=== PATIENT | female | born 1945 | race African-American/Black ===

== ENCOUNTER 2017-02-07 13:47 | Inpatient (IN) ==
[2017-02-07] MEDS ORDERED: SODIUM CHLORIDE 0.9% 500 ML IV STA (14:03)
[2017-02-07 14:55] LABS: Basophils % 0.1 % (0.0-0.8); Hematocrit 40.8 VOL% (35.7-47.0); Immature Granulocytes % 0.3 %; Immature Granulocytes Absolute 0.02 #; Lymphocytes # 0.7 10*3/uL (1.4-4.0); Lymphocytes % 9.5 % (21.3-54.2); Mean Corpuscular HGB Conc 34.3 GM/DL (32-36); Mean Corpuscular Hemoglobin 27 PG (27-34); Mean Corpuscular Volume 79.8 FL (87-102); Mean Platelet Volume 9.7 FL (9.6-12.0); Monocytes # 0.4 10*3/uL (0.11-0.8); Monocytes % 4.8 % (1.7-12.7); Neutrophils # 6.6 10*3/uL (1.4-7.4); Neutrophils % 85.3 % (38.7-73.9); Platelet Count 195 T/CUMM (130-400); Red Blood Count 5.11 MC/CUMM (3.8-5.5); Red Cell Distribution Width 14.6 % (9.3-17.3); White Blood Count 7.7 T/CUMM (4-12)
[2017-02-07 15:15] LABS: Albumin 3.2 G/DL (3.4-5.0); Bilirubin,Total 0.9 MG/DL (0.2-1.0); Calcium 8.9 MG/DL (8.5-10.1); Osmolality,Calculated 281.3 MOS/KG (273-304); Potassium 2.8 MMOL/L (3.5-5.1); Total Protein 6.8 G/DL (6.4-8.3)
[2017-02-07] MEDS ORDERED: LEVOFLOXACIN INJ 500 MG in PREMIX 1 EACH IV STA (15:38)
[2017-02-07 15:59] LABS: Platelet Estimate Normal
[2017-02-07] MEDS ORDERED: LEVOFLOXACIN INJ 100 ML IV ONE (16:05)
[2017-02-07] MEDS ORDERED: ALBUTEROL 2.5 MG/3 ML NEB RESP TX PRN (16:11)
[2017-02-07] MEDS ORDERED: GLUCAGON 1 MG VIAL IM PRN ×3 (16:51→18:43)
[2017-02-07] MEDS ORDERED: DEXTROSE 50% 25 GM/50 ML VIAL IV PRN ×3 (16:51→18:43)
[2017-02-07] MEDS ORDERED: methylPREDNISolone SOD SUC 125 MG/2 ML VIAL IV SCH (17:30)
[2017-02-07] MEDS: INSULIN LISPRO 100 UNIT/ML SUBCUT SCH (19:11)
[2017-02-07] MEDS: POTASSIUM CHLORIDE 20 MEQ TABLET PO SCH ×2 (19:49→20:21)
[2017-02-07] MEDS: ACETAMINOPHEN 325 MG TABLET PO PRN (19:50)
[2017-02-07] MEDS ORDERED: POTASSIUM CHLORIDE 20 MEQ TABLET PO SCH (20:30)
[2017-02-07] MEDS: ALBUTEROL/IPRATROPIUM 3 ML NEB RESP TX SCH (20:32)
[2017-02-07] MEDS ORDERED: INSULIN REGULAR 100 UNIT/ML SUBCUT SCH (21:00)
[2017-02-07] MEDS: methylPREDNISolone SOD SUC 40 MG/1 ML VIAL IV SCH (21:02)
[2017-02-07] MEDS: SODIUM CHLOR 0.9% KCL 20 MEQ 20 MEQ/1,000 ML BAG IV SCH (21:02)
[2017-02-07] MEDS: guaiFENesin/DM ER 600-30 MG TABLET PO SCH (21:33)
[2017-02-07] MEDS: LACTOBACILLUS RHAMNOSUS GG CAPSULE PO SCH (21:34)
[2017-02-08] MEDS: ALBUTEROL/IPRATROPIUM 3 ML NEB RESP TX SCH ×4 (01:05→19:37)
[2017-02-08] MEDS: SODIUM CHLOR 0.9% KCL 20 MEQ 20 MEQ/1,000 ML BAG IV SCH ×2 (03:43→10:02)
[2017-02-08] MEDS: methylPREDNISolone SOD SUC 40 MG/1 ML VIAL IV SCH ×3 (04:52→23:59)
[2017-02-08] MEDS: ACETAMINOPHEN 325 MG TABLET PO PRN (06:50)
[2017-02-08 07:50] LABS: Basophils # 0.1 10*3/uL (0.0-0.2); Basophils % 0.4 % (0.0-0.8); Hemoglobin 13.4 GM/DL (12.0-16.0); Immature Granulocytes % 0.9 %; Immature Granulocytes Absolute 0.13 #; Lymphocytes # 1.1 10*3/uL (1.4-4.0); Lymphocytes % 7.7 % (21.3-54.2); Mean Corpuscular HGB Conc 33.5 GM/DL (32-36); Mean Corpuscular Hemoglobin 27 PG (27-34); Mean Corpuscular Volume 80.5 FL (87-102); Mean Platelet Volume 9.9 FL (9.6-12.0); Monocytes # 0.2 10*3/uL (0.11-0.8); Monocytes % 1.7 % (1.7-12.7); Neutrophils # 12.3 10*3/uL (1.4-7.4); Neutrophils % 89.3 % (38.7-73.9); Platelet Count 181 T/CUMM (130-400); Red Blood Count 4.97 MC/CUMM (3.8-5.5); Red Cell Distribution Width 14.9 % (9.3-17.3); White Blood Count 13.8 T/CUMM (4-12)
[2017-02-08 08:17] LABS: Osmolality,Calculated 293.8 MOS/KG (273-304); Potassium 3.8 MMOL/L (3.5-5.1)
[2017-02-08 08:33] LABS: Band Neutrophils 22 % (0-10); Lymphocytes 7 % (20-55); Metamyelocytes 9 %; Myelocytes 4 %; Segmented Neutrophils 51 % (50-85); Total Cells Counted 100
[2017-02-08 09:07] LABS: Hypochromasia 1+; Platelet Estimate Adequate
[2017-02-08] MEDS: guaiFENesin/DM ER 600-30 MG TABLET PO SCH ×2 (09:19→20:41)
[2017-02-08] MEDS: INSULIN LISPRO 100 UNIT/ML SUBCUT SCH ×4 (09:19→20:40)
[2017-02-08] MEDS: LACTOBACILLUS RHAMNOSUS GG CAPSULE PO SCH (09:19)
[2017-02-08] MEDS ORDERED: DIPHENOXYLATE/ATROPINE 2.5-0.025 MG TABLET PO PRN (09:30)
[2017-02-08] MEDS: metroNIDAZOLE 500 MG TABLET PO SCH ×3 (12:48→20:41)
[2017-02-08] MEDS: ZINC OXIDE PASTE 113 GM TUBE TOP SCH ×2 (12:48→21:00)
[2017-02-08] MEDS ORDERED: BACLOFEN 10 MG TABLET PO PRN (15:12)
[2017-02-08] MEDS ORDERED: OXYMORPHONE HCL 20 MG PO SCH (15:15)
[2017-02-08] MEDS: SODIUM BICARB INJ 50 MEQ, POTASSIUM CHLORIDE INJ 20 MEQ in SODIUM CHLORIDE 0.45% 1,000 ML IV SCH (15:32)
[2017-02-08] MEDS: PANTOPRAZOLE 40 MG TABLET PO SCH (16:20)
[2017-02-08] MEDS: LEVOFLOXACIN INJ 750 MG in PREMIX 1 EACH IV SCH (16:21)
[2017-02-08] MEDS ORDERED: glipiZIDE 5 MG TABLET PO SCH (16:30)
[2017-02-08] MEDS: PREGABALIN 100 MG CAPSULE PO SCH (20:41)
[2017-02-08] MEDS: PRAVASTATIN 20 MG TABLET PO SCH (20:41)
[2017-02-09] MEDS: SODIUM BICARB INJ 50 MEQ, POTASSIUM CHLORIDE INJ 20 MEQ in SODIUM CHLORIDE 0.45% 1,000 ML IV SCH ×2 (00:01→08:58)
[2017-02-09] MEDS: ALBUTEROL/IPRATROPIUM 3 ML NEB RESP TX SCH ×4 (00:12→19:00)
[2017-02-09 05:45] LABS: Basophils # 0.1 10*3/uL (0.0-0.2); Basophils % 0.4 % (0.0-0.8); Hematocrit 36.2 VOL% (35.7-47.0); Hemoglobin 12.3 GM/DL (12.0-16.0); Immature Granulocytes % 0.7 %; Immature Granulocytes Absolute 0.11 #; Lymphocytes # 0.8 10*3/uL (1.4-4.0); Mean Corpuscular Hemoglobin 27 PG (27-34); Mean Corpuscular Volume 79.7 FL (87-102); Mean Platelet Volume 10.2 FL (9.6-12.0); Monocytes # 0.6 10*3/uL (0.11-0.8); Monocytes % 3.7 % (1.7-12.7); Neutrophils # 13.8 10*3/uL (1.4-7.4); Neutrophils % 90.2 % (38.7-73.9); Platelet Count 191 T/CUMM (130-400); Red Blood Count 4.54 MC/CUMM (3.8-5.5); Red Cell Distribution Width 14.9 % (9.3-17.3); White Blood Count 15.3 T/CUMM (4-12)
[2017-02-09 06:15] LABS: Calcium 8.8 MG/DL (8.5-10.1); Magnesium 1.9 MG/DL (1.8-2.4); Osmolality,Calculated 288.8 MOS/KG (273-304); Potassium 3.8 MMOL/L (3.5-5.1)
[2017-02-09 06:21] LABS: Band Neutrophils 11 % (0-10); Hypochromasia 1+; Lymphocytes 5 % (20-55); Segmented Neutrophils 80 % (50-85); Total Cells Counted 100
[2017-02-09 06:22] LABS: Microcytosis 1+; Platelet Estimate Adequate
[2017-02-09] MEDS: INSULIN LISPRO 100 UNIT/ML SUBCUT SCH ×4 (08:51→20:37)
[2017-02-09] MEDS: metroNIDAZOLE 500 MG TABLET PO SCH ×3 (08:53→21:30)
[2017-02-09] MEDS: ZINC OXIDE PASTE 113 GM TUBE TOP SCH ×2 (08:53→21:30)
[2017-02-09] MEDS: glipiZIDE 5 MG TABLET PO SCH (08:54)
[2017-02-09] MEDS: ESCITALOPRAM 10 MG TABLET PO SCH (08:55)
[2017-02-09] MEDS: PREGABALIN 100 MG CAPSULE PO SCH ×2 (08:55→21:30)
[2017-02-09] MEDS: guaiFENesin/DM ER 600-30 MG TABLET PO SCH ×2 (08:55→21:30)
[2017-02-09] MEDS: LISINOPRIL 10 MG TABLET PO SCH (08:56)
[2017-02-09] MEDS ORDERED: FUROSEMIDE 40 MG/4 ML VIAL IV ONE (09:10)
[2017-02-09] MEDS: methylPREDNISolone SOD SUC 40 MG/1 ML VIAL IV SCH (11:01)
[2017-02-09] MEDS: LEVOFLOXACIN INJ 750 MG in PREMIX 1 EACH IV SCH (16:30)
[2017-02-09] MEDS: PANTOPRAZOLE 40 MG TABLET PO SCH (16:31)
[2017-02-09] MEDS: PRAVASTATIN 20 MG TABLET PO SCH (21:30)
[2017-02-09] MEDS: ZALEPLON 5 MG CAPSULE PO PRN (21:36)
[2017-02-10] MEDS: methylPREDNISolone SOD SUC 40 MG/1 ML VIAL IV SCH ×3 (00:27→21:02)
[2017-02-10] MEDS: ALBUTEROL/IPRATROPIUM 3 ML NEB RESP TX SCH ×4 (01:11→19:05)
[2017-02-10 05:48] LABS: Basophils % 0.1 % (0.0-0.8); Hematocrit 36.5 VOL% (35.7-47.0); Hemoglobin 12.7 GM/DL (12.0-16.0); Immature Granulocytes % 0.4 %; Immature Granulocytes Absolute 0.05 #; Lymphocytes # 0.9 10*3/uL (1.4-4.0); Lymphocytes % 7.5 % (21.3-54.2); Mean Corpuscular HGB Conc 34.8 GM/DL (32-36); Mean Corpuscular Hemoglobin 28 PG (27-34); Mean Corpuscular Volume 79.2 FL (87-102); Mean Platelet Volume 9.8 FL (9.6-12.0); Monocytes # 0.3 10*3/uL (0.11-0.8); Monocytes % 2.9 % (1.7-12.7); Neutrophils # 10.5 10*3/uL (1.4-7.4); Neutrophils % 89.1 % (38.7-73.9); Platelet Count 201 T/CUMM (130-400); Red Blood Count 4.61 MC/CUMM (3.8-5.5); Red Cell Distribution Width 14.6 % (9.3-17.3); White Blood Count 11.8 T/CUMM (4-12)
[2017-02-10 06:20] LABS: Calcium 8.6 MG/DL (8.5-10.1); Magnesium 2.1 MG/DL (1.8-2.4); Osmolality,Calculated 289.1 MOS/KG (273-304); Potassium 3.3 MMOL/L (3.5-5.1)
[2017-02-10] MEDS ORDERED: ONDANSETRON 4 MG/2 ML VIAL IV PRN (09:24)
[2017-02-10] MEDS: guaiFENesin/DM ER 600-30 MG TABLET PO SCH ×2 (10:30→20:42)
[2017-02-10] MEDS: LISINOPRIL 10 MG TABLET PO SCH (10:30)
[2017-02-10] MEDS: metroNIDAZOLE 500 MG TABLET PO SCH (10:31)
[2017-02-10] MEDS: ESCITALOPRAM 10 MG TABLET PO SCH (10:31)
[2017-02-10] MEDS: glipiZIDE 5 MG TABLET PO SCH (10:31)
[2017-02-10] MEDS: PREGABALIN 100 MG CAPSULE PO SCH ×2 (10:31→20:41)
[2017-02-10] MEDS: ZINC OXIDE PASTE 113 GM TUBE TOP SCH ×2 (10:32→20:43)
[2017-02-10] MEDS: INSULIN LISPRO 100 UNIT/ML SUBCUT SCH ×4 (10:32→20:42)
[2017-02-10] MEDS ORDERED: POTASSIUM CHLORIDE 20 MEQ TABLET PO ONE (11:02)
[2017-02-10] MEDS: PANTOPRAZOLE 40 MG TABLET PO SCH (17:23)
[2017-02-10] MEDS: PRAVASTATIN 20 MG TABLET PO SCH (20:41)
[2017-02-10] MEDS: LEVOFLOXACIN INJ 750 MG in PREMIX 1 EACH IV SCH (20:42)
[2017-02-11] MEDS: ALBUTEROL/IPRATROPIUM 3 ML NEB RESP TX SCH ×4 (01:00→19:17)
[2017-02-11] MEDS ORDERED: CYCLOBENZAPRINE 10 MG TABLET ONE (09:13)
[2017-02-11 09:56] LABS: Calcium 8.2 MG/DL (8.5-10.1); Magnesium 2.1 MG/DL (1.8-2.4); Potassium 3.9 MMOL/L (3.5-5.1)
[2017-02-11 10:01] LABS: Basophils % 0.3 % (0.0-0.8); Hemoglobin 12.7 GM/DL (12.0-16.0); Immature Granulocytes % 3.8 %; Immature Granulocytes Absolute 0.26 #; Lymphocytes # 1.2 10*3/uL (1.4-4.0); Lymphocytes % 16.9 % (21.3-54.2); Mean Corpuscular HGB Conc 34.3 GM/DL (32-36); Mean Corpuscular Hemoglobin 27 PG (27-34); Mean Corpuscular Volume 79.7 FL (87-102); Mean Platelet Volume 10.1 FL (9.6-12.0); Monocytes # 0.5 10*3/uL (0.11-0.8); Monocytes % 7.3 % (1.7-12.7); Neutrophils # 4.9 10*3/uL (1.4-7.4); Neutrophils % 71.7 % (38.7-73.9); Platelet Count 200 T/CUMM (130-400); Red Blood Count 4.64 MC/CUMM (3.8-5.5); Red Cell Distribution Width 15.2 % (9.3-17.3); White Blood Count 6.8 T/CUMM (4-12)
[2017-02-11] MEDS: INSULIN LISPRO 100 UNIT/ML SUBCUT SCH ×4 (11:00→21:07)
[2017-02-11] MEDS: glipiZIDE 5 MG TABLET PO SCH (11:01)
[2017-02-11] MEDS: ESCITALOPRAM 10 MG TABLET PO SCH (11:01)
[2017-02-11] MEDS: ZINC OXIDE PASTE 113 GM TUBE TOP SCH ×2 (11:01→21:08)
[2017-02-11] MEDS: guaiFENesin/DM ER 600-30 MG TABLET PO SCH ×2 (11:02→21:06)
[2017-02-11] MEDS: LISINOPRIL 10 MG TABLET PO SCH (11:02)
[2017-02-11] MEDS: PREGABALIN 100 MG CAPSULE PO SCH ×2 (11:02→21:06)
[2017-02-11] MEDS: methylPREDNISolone SOD SUC 40 MG/1 ML VIAL IV SCH ×2 (11:03→20:59)
[2017-02-11] MEDS: CYCLOBENZAPRINE 10 MG TABLET PO SCH ×3 (11:03→21:06)
[2017-02-11] MEDS: LIDOCAINE 5% PATCH TRANSDERM SCH (11:04)
[2017-02-11 12:28] LABS: INR 1.1; PT Patient Result 11.4 SECS; Partial Thromboplastin Time 26.7 SECS (0-40)
[2017-02-11] MEDS: PANTOPRAZOLE 40 MG TABLET PO SCH (17:07)
[2017-02-11] MEDS: PRAVASTATIN 20 MG TABLET PO SCH (21:06)
[2017-02-11] MEDS: ZALEPLON 5 MG CAPSULE PO PRN (21:07)
[2017-02-11] MEDS: LEVOFLOXACIN INJ 750 MG in PREMIX 1 EACH IV SCH (21:08)
[2017-02-12] MEDS: ALBUTEROL/IPRATROPIUM 3 ML NEB RESP TX SCH ×4 (00:08→19:22)
[2017-02-12] MEDS ORDERED: PROMETHAZINE 25 MG/1 ML VIAL IM ONE (07:00)
[2017-02-12] MEDS ORDERED: MIDAZOLAM 2 MG/2 ML VIAL ONE (07:29)
[2017-02-12] MEDS ORDERED: LIDOCAINE 1% 20 ML VIAL MISC INJ ONE (07:30)
[2017-02-12] MEDS ORDERED: MIDAZOLAM 2 MG/2 ML VIAL IV ONE (07:30)
[2017-02-12] MEDS ORDERED: LIDOCAINE 2% 20 ML VIAL RESP TX ONE (07:30)
[2017-02-12] MEDS ORDERED: DEXTROSE 50% 25 GM/50 ML VIAL IV PRN (09:15)
[2017-02-12] MEDS ORDERED: GLUCAGON 1 MG VIAL IM PRN (09:15)
[2017-02-12] MEDS: INSULIN LISPRO 100 UNIT/ML SUBCUT SCH ×4 (10:31→21:45)
[2017-02-12] MEDS: CYCLOBENZAPRINE 10 MG TABLET PO SCH ×3 (10:32→21:44)
[2017-02-12] MEDS: ZINC OXIDE PASTE 113 GM TUBE TOP SCH ×2 (10:32→23:15)
[2017-02-12] MEDS: ESCITALOPRAM 10 MG TABLET PO SCH (10:33)
[2017-02-12] MEDS: LIDOCAINE 5% PATCH TRANSDERM SCH (10:33)
[2017-02-12] MEDS: PREGABALIN 100 MG CAPSULE PO SCH ×2 (10:34→21:44)
[2017-02-12] MEDS: guaiFENesin/DM ER 600-30 MG TABLET PO SCH ×2 (10:34→21:44)
[2017-02-12] MEDS: LISINOPRIL 10 MG TABLET PO SCH (10:35)
[2017-02-12] MEDS: methylPREDNISolone SOD SUC 40 MG/1 ML VIAL IV SCH ×2 (10:35→21:45)
[2017-02-12] MEDS: DORNASE ALFA 2.5 MG/2.5 ML VIAL RESP TX SCH ×2 (11:10→19:22)
[2017-02-12] MEDS: PANTOPRAZOLE 40 MG TABLET PO SCH (16:20)
[2017-02-12] MEDS: LEVOFLOXACIN INJ 750 MG in PREMIX 1 EACH IV SCH (21:43)
[2017-02-12] MEDS: PRAVASTATIN 20 MG TABLET PO SCH (21:44)
[2017-02-12] MEDS: ZALEPLON 5 MG CAPSULE PO PRN (23:15)
[2017-02-13] MEDS: ALBUTEROL/IPRATROPIUM 3 ML NEB RESP TX SCH ×4 (00:39→19:40)
[2017-02-13] MEDS: DORNASE ALFA 2.5 MG/2.5 ML VIAL RESP TX SCH ×2 (07:00→19:45)
[2017-02-13] MEDS: INSULIN LISPRO 100 UNIT/ML SUBCUT SCH ×4 (08:59→21:51)
[2017-02-13] MEDS: ZINC OXIDE PASTE 113 GM TUBE TOP SCH ×2 (08:59→21:52)
[2017-02-13] MEDS: LIDOCAINE 5% PATCH TRANSDERM SCH (09:00)
[2017-02-13] MEDS: CYCLOBENZAPRINE 10 MG TABLET PO SCH ×3 (09:00→21:50)
[2017-02-13] MEDS: ESCITALOPRAM 10 MG TABLET PO SCH (09:00)
[2017-02-13] MEDS: guaiFENesin/DM ER 600-30 MG TABLET PO SCH ×2 (09:01→21:50)
[2017-02-13] MEDS: NYSTATIN 500,000 UNIT/5 ML UDCUP SWISH/SWAL SCH ×4 (09:01→21:50)
[2017-02-13] MEDS: LISINOPRIL 10 MG TABLET PO SCH (09:01)
[2017-02-13] MEDS: PREGABALIN 100 MG CAPSULE PO SCH ×2 (09:01→21:49)
[2017-02-13] MEDS: ACETAMINOPHEN 325 MG TABLET PO PRN (09:02)
[2017-02-13] MEDS ORDERED: FLUCONAZOLE 100 MG TABLET PO SCH (10:30)
[2017-02-13] MEDS: PANTOPRAZOLE 40 MG TABLET PO SCH (16:54)
[2017-02-13] MEDS ORDERED: methylPREDNISolone SOD SUC 40 MG/1 ML VIAL IV SCH (21:00)
[2017-02-13] MEDS: PRAVASTATIN 20 MG TABLET PO SCH (21:50)
[2017-02-13] MEDS: LEVOFLOXACIN INJ 750 MG in PREMIX 1 EACH IV SCH (21:50)
[2017-02-13] MEDS: ZALEPLON 5 MG CAPSULE PO PRN (22:00)
[2017-02-14] MEDS: ALBUTEROL/IPRATROPIUM 3 ML NEB RESP TX SCH ×2 (00:38→07:17)
[2017-02-14] MEDS: DORNASE ALFA 2.5 MG/2.5 ML VIAL RESP TX SCH (07:17)
[2017-02-14 07:56] VITALS: BP 155/80
[2017-02-14] MEDS: INSULIN LISPRO 100 UNIT/ML SUBCUT SCH (08:35)
[2017-02-14] MEDS: NYSTATIN 500,000 UNIT/5 ML UDCUP SWISH/SWAL SCH (08:56)
[2017-02-14] MEDS: LISINOPRIL 10 MG TABLET PO SCH (08:56)
[2017-02-14] MEDS: guaiFENesin/DM ER 600-30 MG TABLET PO SCH (08:56)
[2017-02-14] MEDS: ESCITALOPRAM 10 MG TABLET PO SCH (08:57)
[2017-02-14] MEDS: PREGABALIN 100 MG CAPSULE PO SCH (08:57)
[2017-02-14] MEDS: predniSONE 20 MG TABLET PO SCH ×2 (08:57→09:03)
[2017-02-14] MEDS: LIDOCAINE 5% PATCH TRANSDERM SCH (08:57)
[2017-02-14] MEDS: ZINC OXIDE PASTE 113 GM TUBE TOP SCH (08:57)
[2017-02-14] MEDS: CYCLOBENZAPRINE 10 MG TABLET PO SCH (08:57)
== END 2017-02-14 10:30 | disposition home or self-care (01) | DRG 166 ==
LOC: EDBD → EDUNIT# → N.ED 13:47 → N.EDINP 15:48 → N.2E 18:40
PROVIDERS: ADMIT Internal Medicine; ATTEND Internal Medicine

== ENCOUNTER 2017-04-09 17:33 | Inpatient (IN) ==
[2017-04-09] MEDS ORDERED: SODIUM CHLORIDE 0.9% 500 ML IV STA (17:53)
[2017-04-09] MEDS ORDERED: LEVOFLOXACIN INJ 750 MG in PREMIX 1 EACH IV STA (17:53)
[2017-04-09] MEDS ORDERED: methylPREDNISolone SOD SUC 125 MG/2 ML VIAL IV STA (17:59)
[2017-04-09] MEDS ORDERED: ALBUTEROL 2.5 MG/3 ML NEB RESP TX SCH (18:00)
[2017-04-09] MEDS: ALBUTEROL NEB SOLN 5 MG/ML 20 ML/BOTTLE RESP TX SCH (18:15)
[2017-04-09] MEDS ORDERED: LEVOFLOXACIN INJ 0 ML IV ONE (18:25)
[2017-04-09] MEDS ORDERED: methylPREDNISolone SOD SUC 125 MG/2 ML VIAL ONE (18:26)
[2017-04-09 18:38] LABS: Basophils % 0.2 % (0.0-0.8); Hematocrit 39.9 VOL% (35.7-47.0); Hemoglobin 13.8 GM/DL (12.0-16.0); Immature Granulocytes % 0.7 %; Lymphocytes # 1.4 10*3/uL (1.4-4.0); Lymphocytes % 9.1 % (21.3-54.2); Mean Corpuscular HGB Conc 34.6 GM/DL (32-36); Mean Corpuscular Hemoglobin 27 PG (27-34); Mean Corpuscular Volume 78.4 FL (87-102); Mean Platelet Volume 9.6 FL (9.6-12.0); Monocytes # 1.2 10*3/uL (0.11-0.8); Monocytes % 7.7 % (1.7-12.7); Neutrophils # 12.4 10*3/uL (1.4-7.4); Neutrophils % 82.3 % (38.7-73.9); Platelet Count 221 T/CUMM (130-400); Red Blood Count 5.09 MC/CUMM (3.8-5.5); Red Cell Distribution Width 14.4 % (9.3-17.3)
[2017-04-09 18:46] LABS: INR 1.1; Partial Thromboplastin Time 34.7 SECS (0-40)
[2017-04-09 18:53] LABS: Apearance,Urine Slightly Hazy (Clear); Bilirubin,Urine Negative (Negative); Blood, Urine Moderate mg/dL (Negative); Glucose,Urine (UA) Negative (Negative); Ketones,Urine Negative (Negative); Nitrite,Urine Negative (Negative); Protein,Urine 30 MG/DL; RBC,Urine 3 /HPF (0-4); Squamous Epithelial Cell,Urine Occasional /HPF (0-10); Urine Color Yellow (Yellow); Urine Specific Gravity 1.013 (1.001-1.035); WBC,Urine 2 /HPF (0-6)
[2017-04-09 18:58] LABS: Alanine Aminotransferase < 9 U/L (13-56); Albumin 3.2 G/DL (3.4-5.0); Alkaline Phosphatase 110 U/L (45-117); Aspartate Amino Transferase 12 U/L (0-37); Blood Urea Nitrogen 11 MG/DL (7-18); Calcium 8.6 MG/DL (8.5-10.1); Glucose 133 MG/DL (74-106); Osmolality,Calculated 266.4 MOS/KG (273-304); Potassium 3.1 MMOL/L (3.5-5.1); Sodium 133 MMOL/L (136-145); Total Protein 7.3 G/DL (6.4-8.3); Troponin I Only < 0.015 NG/ML (0.00-0.045)
[2017-04-09] MEDS ORDERED: POTASSIUM BICARB EFFERVESCENT 25 MEQ TABLET PO ONE ×2 (19:01→20:53)
[2017-04-09] MEDS ORDERED: DEXTROSE 50% 25 GM/50 ML VIAL IV PRN (20:27)
[2017-04-09] MEDS ORDERED: ONDANSETRON 4 MG/2 ML VIAL IV PRN (20:27)
[2017-04-09] MEDS ORDERED: ACETAMINOPHEN 325 MG TABLET PO PRN (20:27)
[2017-04-09] MEDS ORDERED: GLUCAGON 1 MG VIAL IM PRN (20:27)
[2017-04-09] MEDS: ENOXAPARIN 40 MG/0.4 ML SYRINGE SUBCUT SCH (21:02)
[2017-04-09] MEDS ORDERED: INSULIN REGULAR 100 UNIT/ML ONE (21:50)
[2017-04-09] MEDS: INSULIN REGULAR 100 UNIT/ML SUBCUT SCH (21:52)
[2017-04-10] MEDS: ALBUTEROL/IPRATROPIUM 3 ML NEB RESP TX SCH ×4 (01:29→19:30)
[2017-04-10] MEDS: methylPREDNISolone SOD SUC 125 MG/2 ML VIAL IV SCH ×2 (02:31→09:50)
[2017-04-10 06:09] LABS: Basophils % 0.1 % (0.0-0.8); Hematocrit 39.3 VOL% (35.7-47.0); Hemoglobin 13.3 GM/DL (12.0-16.0); Immature Granulocytes % 0.9 %; Immature Granulocytes Absolute 0.14 #; Lymphocytes # 0.9 10*3/uL (1.4-4.0); Mean Corpuscular HGB Conc 33.8 GM/DL (32-36); Mean Corpuscular Hemoglobin 27 PG (27-34); Mean Corpuscular Volume 78.6 FL (87-102); Mean Platelet Volume 10.3 FL (9.6-12.0); Monocytes # 0.2 10*3/uL (0.11-0.8); Monocytes % 1.5 % (1.7-12.7); Neutrophils # 13.8 10*3/uL (1.4-7.4); Neutrophils % 91.5 % (38.7-73.9); Platelet Count 247 T/CUMM (130-400); Red Cell Distribution Width 14.6 % (9.3-17.3); White Blood Count 15.1 T/CUMM (4-12)
[2017-04-10 06:49] LABS: Alanine Aminotransferase < 9 U/L (13-56); Albumin 2.7 G/DL (3.4-5.0); Alkaline Phosphatase 102 U/L (45-117); Aspartate Amino Transferase 7 U/L (0-37); Blood Urea Nitrogen 11 MG/DL (7-18); Calcium 9.6 MG/DL (8.5-10.1); Glucose 216 MG/DL (74-106); Osmolality,Calculated 284.4 MOS/KG (273-304); Potassium 3.4 MMOL/L (3.5-5.1); Sodium 140 MMOL/L (136-145); Total Protein 6.9 G/DL (6.4-8.3)
[2017-04-10 06:53] LABS: Band Neutrophils 2 % (0-10); Hypochromasia 1+; Lymphocytes 6 % (20-55); Microcytosis 1+; Segmented Neutrophils 91 % (50-85); Total Cells Counted 100
[2017-04-10 06:54] LABS: Platelet Estimate Normal
[2017-04-10] MEDS ORDERED: PANTOPRAZOLE 40 MG TABLET PO SCH (09:00)
[2017-04-10] MEDS: INSULIN REGULAR 100 UNIT/ML SUBCUT SCH ×4 (09:50→22:00)
[2017-04-10] MEDS ORDERED: POTASSIUM CHLORIDE 20 MEQ TABLET PO ONE (12:38)
[2017-04-10] MEDS ORDERED: OXYMORPHONE HCL 20 MG PO SCH (12:45)
[2017-04-10] MEDS ORDERED: ALBUTEROL 2.5 MG/3 ML NEB RESP TX PRN (13:00)
[2017-04-10] MEDS: CYCLOBENZAPRINE 10 MG TABLET PO SCH ×2 (15:37→21:59)
[2017-04-10] MEDS: PREGABALIN 100 MG CAPSULE PO SCH ×2 (15:37→21:59)
[2017-04-10] MEDS: methylPREDNISolone SOD SUC 40 MG/1 ML VIAL IV SCH (17:17)
[2017-04-10] MEDS: PANTOPRAZOLE 40 MG TABLET PO SCH (17:18)
[2017-04-10] MEDS: LEVOFLOXACIN INJ 750 MG in PREMIX 1 EACH IV SCH (17:19)
[2017-04-10] MEDS: ALBUTEROL NEB SOLN 5 MG/ML 20 ML/BOTTLE RESP TX SCH (21:00)
[2017-04-10] MEDS: PRAVASTATIN 20 MG TABLET PO SCH (21:59)
[2017-04-10] MEDS: ENOXAPARIN 40 MG/0.4 ML SYRINGE SUBCUT SCH (22:00)
[2017-04-10] MEDS: ZALEPLON 5 MG CAPSULE PO SCH (22:00)
[2017-04-11] MEDS: methylPREDNISolone SOD SUC 40 MG/1 ML VIAL IV SCH ×2 (00:37→14:01)
[2017-04-11] MEDS: ALBUTEROL/IPRATROPIUM 3 ML NEB RESP TX SCH ×4 (01:42→20:06)
[2017-04-11] MEDS: DORNASE ALFA 2.5 MG/2.5 ML VIAL RESP TX SCH ×2 (08:37→20:06)
[2017-04-11] MEDS: LISINOPRIL 20 MG TABLET PO SCH (08:53)
[2017-04-11] MEDS: PREGABALIN 100 MG CAPSULE PO SCH ×3 (08:54→21:45)
[2017-04-11] MEDS: ESCITALOPRAM 10 MG TABLET PO SCH (08:54)
[2017-04-11] MEDS: INSULIN REGULAR 100 UNIT/ML SUBCUT SCH ×4 (08:55→21:52)
[2017-04-11] MEDS: CYCLOBENZAPRINE 10 MG TABLET PO SCH ×3 (08:55→21:47)
[2017-04-11] MEDS: CEFEPIME 1,000 MG in SYRINGE 1 EACH IV SCH ×2 (08:56→21:42)
[2017-04-11] MEDS: PANTOPRAZOLE 40 MG TABLET PO SCH (16:48)
[2017-04-11] MEDS: LEVOFLOXACIN INJ 750 MG in PREMIX 1 EACH IV SCH (17:51)
[2017-04-11] MEDS ORDERED: POTASSIUM CHLORIDE 20 MEQ TABLET PO ONE (19:33)
[2017-04-11] MEDS: ZALEPLON 5 MG CAPSULE PO SCH (21:44)
[2017-04-11] MEDS: PRAVASTATIN 20 MG TABLET PO SCH (21:45)
[2017-04-11] MEDS: ENOXAPARIN 40 MG/0.4 ML SYRINGE SUBCUT SCH (21:47)
[2017-04-12] MEDS: ALBUTEROL/IPRATROPIUM 3 ML NEB RESP TX SCH ×3 (00:29→14:05)
[2017-04-12] MEDS: methylPREDNISolone SOD SUC 40 MG/1 ML VIAL IV SCH ×2 (00:56→15:04)
[2017-04-12 03:37] LABS: Calcium 8.5 MG/DL (8.5-10.1); Magnesium 2.4 MG/DL (1.8-2.4); Osmolality,Calculated 287.3 MOS/KG (273-304); Potassium 4.2 MMOL/L (3.5-5.1)
[2017-04-12] MEDS ORDERED: FUROSEMIDE 20 MG/2 ML VIAL IV ONE (06:00)
[2017-04-12] MEDS: ALBUTEROL NEB SOLN 5 MG/ML 20 ML/BOTTLE RESP TX SCH (06:23)
[2017-04-12] MEDS: DORNASE ALFA 2.5 MG/2.5 ML VIAL RESP TX SCH (08:30)
[2017-04-12] MEDS: ESCITALOPRAM 10 MG TABLET PO SCH (09:22)
[2017-04-12] MEDS: CYCLOBENZAPRINE 10 MG TABLET PO SCH ×2 (09:22→15:04)
[2017-04-12] MEDS: PREGABALIN 100 MG CAPSULE PO SCH ×2 (09:22→15:03)
[2017-04-12] MEDS: LISINOPRIL 20 MG TABLET PO SCH (09:22)
[2017-04-12] MEDS: CEFEPIME 1,000 MG in SYRINGE 1 EACH IV SCH (09:23)
[2017-04-12] MEDS: INSULIN REGULAR 100 UNIT/ML SUBCUT SCH ×2 (09:23→11:15)
[2017-04-12 11:52] VITALS: BP 150/84
== END 2017-04-12 17:27 | disposition home health service (06) | DRG 190 ==
LOC: N.ED 17:33 → N.EDINP 20:28 → N.2E 04-10 01:00
PROVIDERS: ADMIT Family Medicine; ATTEND Family Medicine